=== PATIENT | female | born 1940 | race Caucasian/White ===

== ENCOUNTER 2023-03-07 14:39 | Observation (INO) | payer MEDICARE, OTHER ==
[~2023-03-07] VITALS: Ht 167.6 cm; Wt 61.8 kg
[2023-03-07] MEDS ORDERED: ASPIRIN81 MG PO (15:02)
[2023-03-07] MEDS ORDERED: LIPITOR20 MG PO (15:03)
[2023-03-07] MEDS ORDERED: COL-RITE100 MG PO (15:03)
[2023-03-07] MEDS ORDERED: FLUOXETINE HCL10 MG PO (15:03)
[2023-03-07] MEDS ORDERED: CONSTULOSE10 GM/15 M PO (15:03)
[2023-03-07] MEDS ORDERED: PREMARIN30 GM TOP (15:04)
[2023-03-07] MEDS ORDERED: METOPROLOL SUCC50 MG PO (15:04)
[2023-03-07] MEDS ORDERED: LEVOTHYROXINE88 MC1 PO (15:04)
[2023-03-07] MEDS ORDERED: XARELTO20 MG PO (15:05)
[2023-03-07] MEDS ORDERED: VITAMIN D350 MCG PO (15:05)
[2023-03-07 19:04] VITALS: BP 143/63
--- NOTE | 2023-03-07 19:05 | NUR ---
RECEIVED REPORT FROM DAY SHIFT RN. PATIENT JUST ARRIVED TO THE FLOOR FROM THE ED.
--- NOTE | 2023-03-07 20:35 | NUR ---
PATIENT ADMISSION COMPLETED. PATIENT ASSESMENT COMPLETED. PATIENTS VITALS TAKEN AND RECORDED. PATIENTS IV FLUSHED AND SL PER ORDER. PATIENT IS AAOX4. DISCUSSED PLAN OF CARE WITH PATIENT AND PATIENTS . ALL QUESTIONS ANSWERED. PATIENT PROVIDED SANDWICH BOX AND FRESH ICE WATER. PATIENT DENIES ANY FURTHER NEEDS. CALL LIGHT IN REACH. PATIENTS LEFT FOR THE EVENING.
--- NOTE | 2023-03-07 21:46 | NUR ---
PATIENTS BED ALARM ALERTED STAFF. PATIENT ASSISTED TO THE BR. PATIENT ABLE TO VOID. PATIENT IS A SBA W/FWW. PATIENT IS ABCK IN BED RESTING. PATIENT DENIES ANY FURTHER NEEDS. CALL LIGHT IN REACH. BED ALARM ON FOR SAFETY.
--- NOTE | 2023-03-07 22:49 | NUR ---
PATIENT IS RESTING IN BED WATCHING TV. PATIENT DENIES ANY NEEDS. CALL LIGHT IN REACH. BED ALARM ON FOR SAFETY.
--- NOTE | 2023-03-08 01:02 | NUR ---
PATIENT ASSISTED TO THE BR A SBA W/FWW. PATIENT ABLE TO VOID. PATIENT IS BACK IN BED RESTING. VITALS TAKEN AND RECORDED. INTAKE AND OUTPUT RECORDED. NO BLOOD NOTED IN PATIENTS URINE OR WHEN PATIENT WIPED. PATIENT DENIES ANY FURTHER NEEDS. CALL LIGHT IN REACH. BED ALARM ON FOR SAFETY.
[2023-03-08 01:03] VITALS: BP 114/57
--- NOTE | 2023-03-08 02:17 | NUR ---
PATIENT IS RESTING IN BED WITH EYES CLOASED, RR 15. CALL LIGHT IN REACH. BED ALARM ON FOR SAFETY.
--- NOTE | 2023-03-08 04:13 | NUR ---
PATIENT IS RESTING IN BED WITH EYES CLOSED, RR 15. CALL LIGHT IN REACH. BED ALARM ON FOR SAFETY.
[2023-03-08 06:18] VITALS: BP 132/64
--- NOTE | 2023-03-08 06:22 | NUR ---
PATIENTS VITALS TAKEN AND RECORDED. PATIENTS INTAKE AND OUTPUT RECORDED. AM MEDS PER ORDER. PATIENTS IV FLUSHED AND SL PER ORDER. FRESH ICE WATER PROVIDED. PATIENT DENIES ANY NEEDS. CALL LIGHT IN REACH. BED ALARM ON FOR SAFETY.
--- NOTE | 2023-03-08 06:46 | NUR ---
assisted pt to bathroom with walker. Voided 200 ml
[2023-03-08] MEDS ORDERED: LEVOTHYROXINE88 MCG PO (07:32)
[2023-03-08] MEDS ORDERED: METOPROLOL TART50 MG PO (07:33)
[2023-03-08] MEDS ORDERED: FLUOXETINE HCL10 MG PO (07:35)
[2023-03-08 08:47] VITALS: BP 115/56
--- NOTE | 2023-03-08 09:53 | NUR ---
PATIENT UP TO VOID. NO NOTABLE BLOOD IN URINE OR WHEN PATIENT WIPED. PATIENT TOLERATED HER BREAKFAST WELL. PT BACK TO CHAIR AT THIS TIME. NO NOTABLE DISTRESS. CALL LIGHT WITHIN REACH.
[2023-03-08] MEDS ORDERED: MIRALAX17 GM PO (11:51)
--- NOTE | 2023-03-08 13:22 | NUR ---
HANDOFF REPORT RECEIVED FROM JOSÉ PETERSON. PT UP TO BATHROOM, VOIDED, WITHOUT BM. PT PROVIDED WITH FRESH WATER. PT DENIES OTHER NEEDS AT THIS TIME.
--- NOTE | 2023-03-08 15:13 | NUR ---
DR. MAYO TO BEDSIDE, DISCUSSED PLAN OF CARE WITH FAMILY, PLAN TO STAY ANOTHER NIGHT, RECHECK LABS IN AM AND MONITOR FOR BLOOD IN STOOL. AT BEDSIDE.
[2023-03-08 16:11] VITALS: BP 111/55
[2023-03-08 17:43] VITALS: BP 114/60
--- NOTE | 2023-03-08 17:47 | NUR ---
PT RESTING IN BED. DENIES NEED TO USE RESTROOM. VSS. EYE GLASSES CLEANSED. PT DENIES OTHER NEEDS AT THIS TIME.
--- NOTE | 2023-03-08 19:00 | NUR ---
REPORT RECEIVED FROM OFFGOING JOSÉ JOHNSON.
[2023-03-08 19:43] VITALS: BP 134/70
--- NOTE | 2023-03-08 19:46 | NUR ---
PT ASSESSMENT COMPLETE. PT DENIES PAIN, NASUEA, OR SOB. HR IRREGULAR. IV FLUSHED WITH 10 ML NS. WNL. VS OBTAINED, WNL. PT UP TO BATHROOM AND BACK TO BED WITH 1 PA AND FWW. TOLERATED WELL. POC FOR THIS SHIFT DICUSSED WITH PT. PT STATES UNDERSTANDING. DENIES QUESTIONS, CONCERNS, OR NEEDS AT THIS TIME. CALL LIGHT IN REACH. ROOM IN VIEW OF RN JILLIANO WITH CURTAIN OPEN.
--- NOTE | 2023-03-08 20:30 | NUR ---
PT RESTING IN BED WITH EYES CLOSED. RESPIRATIONS EVEN AND UNLABORED. PT APPEARS TO BE SLEEPING. CALL LIGHT IN REACH.
--- NOTE | 2023-03-08 22:09 | NUR ---
PT UTILIZES CALL LIGHT, REQUESTS TO USE THE BATHROOM. PT UP TO BATHROOM AND BACK TO BED WITH 1 PA AND FWW. TOLERATED WELL. DENIES FURTHER NEEDS AT THIS TIME. CALL LIGHT IN REACH. ROOM IN VIEW OF RN STATION WITH CURTAIN OPEN.
--- NOTE | 2023-03-09 00:13 | NUR ---
PT ROUNDING. PT RESTING IN BED WITH EYES CLOSED. RESPIRATIONS EVEN AND UNLABORED. PT APPEARS TO BE SLEEPING. CALL LIGHT IN REACH.
--- NOTE | 2023-03-09 02:08 | NUR ---
PT UTILIZES CALL LIGHT, REQUESTS TO USE THE BATHROOM. PT UP TO BATHROOM AND BACK TO BED WITH 1 PA AND FWW. PT TOLERATED WELL. PT REPORTS HEADACHE PAIN 2-3/10. PRN ADMINISTERED, SEE EMAR. PT DENIES NAUSEA OR SOB. DENIES FURTHER NEEDS AT THIS TIME. CALL LIGHT IN REACH.
--- NOTE | 2023-03-09 04:00 | NUR ---
PT ROUNDING. PT RESTING IN BED WITH EYES CLOSED. RESPIRATIONS EVEN AND UNLABORED. PT APPEARS TO BE SLEEPING. 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 CALL LIGHT IN REACH.
[2023-03-09 06:29] VITALS: BP 137/69
--- NOTE | 2023-03-09 06:50 | EKG ---
[facility] [address] [place] [id number] Signed Sinus bradycardia Left anterior fascicular block Abnormal ECG No previous ECGs available Confirmed by CHON MAYO MD ([id number]) on 03/09/2023 6:49:54 AM Electronically Signed By: CHON MAYO 03/09/23 0650 PATIENT NAME: NAVJOT ERNST Casey Electrocardiogram DATE OF : 44 PHYSICIAN: CHON MAYO REPORT #: [id number] REPORT IS CONFIDENTIAL AND NOT TO BE RELEASED WITHOUT AUTHORIZATION
--- NOTE | 2023-03-09 07:26 | NUR ---
REPORT FROM EUGENIE CRUZ RN.
--- NOTE | 2023-03-09 08:01 | NUR ---
PATIENT UP TO BATHROOM WITH SBA AND FWW TO VOID. PATIENT UP TO CHAIR, BLANKET PROVIDED. PATIENT DENIES PAIN OR NAUSEA. NO BM FROM PATIENT.
--- NOTE | 2023-03-09 08:21 | NUR ---
DR. MAYO IN TO SEE PATIENT.
--- NOTE | 2023-03-09 09:02 | NUR ---
PATIENT'S SPOUSE CALLED, AND WILL BE COMING TO [facility]MENT[facility] LEAD PATIENT LATER THIS MORNING.
[2023-03-09 09:13] VITALS: BP 98/51
[2023-03-09 09:16] VITALS: BP 90/49
--- NOTE | 2023-03-09 09:24 | NUR ---
PLAN TO HOLD AM METOPROLOL FOR SOFT BP. DISCUSSED WITH PATIENT TO CHECK HER BP TOMORROW MORNING BEFORE TAKING HER MEDICATIONS.
[2023-03-09 09:26] VITALS: BP 90/49
--- NOTE | 2023-03-09 09:32 | NUR ---
PATIENT WOULD LIKE TO WAIT FOR TO ARRIVE BEFORE REVIEWING HER DISCHARGE PAPERS. LEFT ARM IV REMOVED WITH CATHETER INTACT.
--- NOTE | 2023-03-09 10:48 | NUR ---
DISCHARGE PAPERS REVIEWED WITH PATIENT AND SPOUSE. PHARMACY IN TO DISCUSS MEDICATIONS WITH PATIENT. PATIENT AND SPOUSE GIVEN WHEELCHAIR RIDES TO FRONT DOOR.
== END 2023-03-09 10:45 | disposition home or self-care (01) ==
LOC: ED 14:39 → MS 14:41
PROVIDERS: ADMIT Family Medicine; ATTEND Family Medicine
DX: K92.2 Gastrointestinal hemorrhage, unspecified (principal); F32.A Depression, unspecified; E03.9 Hypothyroidism, unspecified; Z86.73 Personal history of transient ischemic attack (TIA), and cerebral infarction without residual deficits
CPT/HCPCS: 36415; 71045; 80048; 80053; 84484; 85025; 85610; 85730; 93005; 93010; A9270